=== PATIENT | female | born 1965 | race Caucasian/White ===

== ENCOUNTER 2017-06-07 20:45 | Emergency (ER) | payer SELFPAY ==
[2017-06-07] MEDS ORDERED: KETOROLAC TROMETHAMINE 60 MG/2 ML VIAL IM ONE (21:39)
--- NOTE | 2017-06-07 21:46 | ED Physician Documentation ---
General Adult - HPI Stated Complaint: homeless Chief Complaint: General Adult Further Comments: yes (51 year old female patient presents with request for refill on her Klonopin.) - ROS CONST: recent illness (left foot broken) EYES/ENT: none CVS/RESP: none GI/: none NEURO/PSYCH: difficulty walking (due to broken foot). denies: headache - PAST HX Past History: none (patient denies) Other History: other (bipolar, depression) Surgeries/Procedures: hysterectomy, other (appy) Allergies/Adverse Reactions: Allergies Allergy/AdvReac Type Severity Reaction Status Date / Time No Known Allergies Allergy Verified 06/07/17 21:16 - SOCIAL HX Smoking History: cigarettes - FAMILY HX Family History: No - VITAL SIGNS Vital Signs: Vital Signs Temp Pulse Resp BP Pulse Ox 98.2 F 82 16 132/55 99 06/07/17 20:45 06/07/17 20:45 06/07/17 20:45 06/07/17 20:45 06/07/17 20:45 - REVIEWED ASSESSMENTS Nursing Assessment Reviewed: Yes Vitals Reviewed: Yes Progress - Progress Progress: Explained that we would not altered or change her klonopin dose. Patient was dropped off in ER by taxi. Is homeless, [facility] [place] [facility] Patient was sent to [facility] [place] from [facility]- ER Nursing contacted [facility] for records and clarification of patient's status. Patient has shuffled between multiple homeless shelters over the past few weeks. No family or friends to assist. Discharged from ER. Allowed to sleep in Room 3, will have social work professor assist with snf placement in the morning. ED Results Lab/Radiology - Orders Orders: ED Orders Category Date Time Status Ketorolac Tromethamine [Toradol] Med 06/07/17 21:39 Discontinued 60 mg IM NOW ONE General Adult Physical Exam - PHYSICAL EXAM GENERAL APPEARANCE: mild distress EENT: eye inspection normal, RENITA RESPIRATORY: no resp distress, chest non-tender, breath sounds normal CVS: reg rate & rhythm, heart sounds normal, equal pulses, no murmur, no gallop , PMI nml, no JVD, no friction rub, 24 ABDOMEN: soft, no organomegaly, normal bowel sounds, no abdominal bruit, no distension EXTREMITIES: other (OCL on right foot. ) NEURO: oriented X3, CN's nml as tested, motor nml, sensation nml, mood/affect nml Discharge Clincal Impression: Homeless single person, Anxiety Referrals: Primary Doctor,No [Primary Care Provider] - 2 Days Condition: Stable Disposition: 01 HOME, SELF-CARE Decision to Admit: NO Decision Time: 21:46
[2017-06-07 22:13] VITALS: BP 108/62
== END 2017-06-07 21:51 | disposition home or self-care (01) ==
LOC: ED 20:45
DX: F41.9 Anxiety disorder, unspecified (principal); Z59.0 Homelessness
CPT/HCPCS: 96372; 99283; J1885

== ENCOUNTER 2017-06-09 14:59 | Emergency (ER) | payer SELFPAY ==
--- NOTE | 2017-06-09 15:28 | ED Physician Documentation ---
General Adult - HISTORIAN Historian: patient - HPI Chief Complaint: Lower Extremity Problem Additional Information: Patient states that she hurt her right foot/ankle about 2 weeks ago. Patient fell from a bed. Has has the foot x-ray done and was told that she had a fracture in the ankle area and had a splint put. Has been told to be partial weight bearing with crutches which she states that she has been doing. Has been putting ice on the area also. Patient states that she felt a crack in the ankle area earlier today. Patient also states that she needs her pschy meds. Is current taking Celexa 40mg daily, Zyrexa 5 mg q HS, Minnpress 1 mg at bedtime, Clonipin 0.5mg TID PRN anxiety, Hydrocodone/APAP 7.5/325 1 q 6 hours PRN pain. Advair Disk inhaler, tramdol. Further Comments: yes - ROS CONST: no problems - PAST HX Past History: other (PTSD, Bipolar, COPD, chronic micro hematuria, ) Surgeries/Procedures: other (cystoscopy, appendectomy, ORIF right humeral fracture, bilateral oopherectomy) Allergies/Adverse Reactions: Allergies Allergy/AdvReac Type Severity Reaction Status Date / Time No Known Allergies Allergy Verified 06/09/17 15:22 Home Medications: Ambulatory Orders Medication Instructions Recorded Unobtainable [Unobtainable] 06/09/17 - SOCIAL HX Smoking History: less than 1 pack/day Alcohol Use: none (1/2 ppd) Drug Use: none - FAMILY HX Family History: No - VITAL SIGNS Vital Signs: Vital Signs Temp Pulse Resp BP Pulse Ox 108/62 06/07/17 21:51 - REVIEWED ASSESSMENTS Nursing Assessment Reviewed: Yes Vitals Reviewed: Yes ED Results Lab/Radiology - Radiology Radiology Impressions: Examination: Plain film ankle History: Ankle discomfort. History of fracture Comparison exam: None provided Findings: 3 views of the ankle demonstrates osteopenia. Faint lucency involving the medial malleolus. Remaining cortical margins appear to be intact. Posterior calcaneal spur. Generalized soft tissue edema/fullness. Impression: Osteopenia. Presumed healing fracture involving the medial malleolus. Correlation with older studies recommended when available. No distinct fracture line could be seen by me. General Adult Physical Exam - PHYSICAL EXAM GENERAL APPEARANCE: no distress EENT: no signs of dehydration NECK: normal inspection, thyroid normal, supple RESPIRATORY: no resp distress, chest non-tender, breath sounds normal. No: wheezes, rales, rhonchi CVS: reg rate & rhythm, heart sounds normal, equal pulses, no murmur, no gallop ABDOMEN: soft, no distension, non-tender BACK: normal inspection SKIN: warm/dry EXTREMITIES: other (patient has some mild swelling and eccymosis tot he right foot area. ) NEURO: oriented X3, CN's nml as tested, motor nml, sensation nml, mood/affect nml. No: cognition normal (mildly confused about some thing or may not be communitcationg well. ) Discharge Clincal Impression: Bipolar 2 disorder Fracture of medial malleolus, right, closed Qualifiers: Encounter type: subsequent encounter Fracture alignment: nondisplaced Fracture healing: with routine healing Qualified Code(s): S82.54XD - Nondisplaced fracture of medial malleolus of right tibia, subsequent encounter for closed fracture with routine healing Referrals: Primary Doctor,No [Primary Care Provider] - 2 Days Additional Instructions: Nonweight bearing on right foot until seen by on orthopedic physician. Use crutches as instructed to do. Continue with pain medication as prescribed. Continue with home medications as prescribed by previous providers. Condition: Stable Disposition: [address] [place] [address] Decision to Admit: NO Date of Decison to Admit: 06/09/17 Decision Time: 15:52
[2017-06-09] MEDS ORDERED: KETOROLAC TROMETHAMINE 60 MG/2 ML VIAL IM ONE (16:27)
--- NOTE | 2017-06-09 16:28 | Diagnostic Imaging Report ---
[facility] [id number] [facility].[address] [id number] Report Submission Date: Jun 09, 2017 4:11:20 PM CLIENT SERVICE EXECUTIVE Patient Study Name: CHRISTINA CAM Date: Jun 09, 2017 3:44:19 PM CLIENT SERVICE EXECUTIVE Modality Type: CR Gender: F Description: LOWER EXTREMITY : 69 Institution: [facility] Physician: TOMMIE FAIRCHILD Examination: Plain film ankle History: Ankle discomfort. History of fracture Comparison exam: None provided Findings: 3 views of the ankle demonstrates osteopenia. Faint lucency involving the medial malleolus. Remaining cortical margins appear to be intact. Posterior calcaneal spur. Generalized soft tissue edema/fullness. Impression: Osteopenia. Presumed healing fracture involving the medial malleolus. Correlation with older studies recommended when available. Electronically signed on Jun 09, 2017 4:11:20 PM CLIENT SERVICE EXECUTIVE by: Roel MORGAN
[2017-06-09 17:47] VITALS: BP 126/46
== END 2017-06-09 17:30 ==
LOC: ED 14:59
DX: S82.54XD Nondisplaced fracture of medial malleolus of right tibia, subsequent encounter for closed fracture with routine healing (principal); W19.XXXA Unspecified fall, initial encounter; Y93.9 Activity, unspecified; Y99.9 Unspecified external cause status
CPT/HCPCS: 73610; J1885; 96372; 99284